=== PATIENT | male | born 1965 | race Caucasian/White ===

== ENCOUNTER 2025-04-20 06:15 | Day surgery (SDC) | payer OTHER, SELFPAY ==
[2025-04-20 07:14] VITALS: BMI 50.2
[2025-04-20 07:15] VITALS: BP 119/69; BMI 50.2
[2025-04-20 07:23] LABS: Glucose - Point of Care 87 mg/dl (70-99)
[2025-04-20 08:31] VITALS: BP 110/63
[2025-04-20 08:41] VITALS: BP 121/70
[2025-04-20 08:45] VITALS: BP 119/106
[2025-04-20 08:52] VITALS: BP 119/75
== END 2025-04-20 09:00 | disposition home or self-care (01) ==
LOC: SDS 06:15
PROVIDERS: ATTENDING PHYSICIAN Surgery
DX: Z12.11 Encounter for screening for malignant neoplasm of colon (principal); D12.3 Benign neoplasm of transverse colon; D12.5 Benign neoplasm of sigmoid colon; K57.30 Diverticulosis of large intestine without perforation or abscess without bleeding; Q43.8 Other specified congenital malformations of intestine; Z86.0100 Personal history of colon polyps, unspecified; Z80.0 Family history of malignant neoplasm of digestive organs
CPT/HCPCS: 45380; 82962; 88305